=== PATIENT | male | born 1995 | race Caucasian/White ===

== ENCOUNTER 2017-12-21 21:47 | Emergency (ER) | payer SELFPAY ==
[~2017-12-21] VITALS: Ht 182.9 cm; Wt 64.0 kg
[2017-12-21 21:51] VITALS: BP 110/57
== END 2017-12-22 00:21 | disposition left against medical advice (07) ==
LOC: ER 22:47
DX: M25.532 Pain in left wrist (principal); Z53.21 Procedure and treatment not carried out due to patient leaving prior to being seen by health care provider